=== PATIENT | female | born 1990 | race Caucasian/White ===

== ENCOUNTER → 2020-02-05 08:04 | Outpatient (BNVA) | payer SELFPAY | PROVIDERS: PCP Nurse Practitioner Family; Visit Provider Surgery | DX: Z76.89 Persons encountering health services in other specified circumstances (principal) ==

== ENCOUNTER → 2020-02-07 08:14 | Outpatient (BNVA) | payer SELFPAY | PROVIDERS: PCP Nurse Practitioner Family; Visit Provider Surgery | DX: Z76.89 Persons encountering health services in other specified circumstances (principal) ==

== ENCOUNTER → 2020-02-13 07:58 | Outpatient (BNVA) | payer SELFPAY | PROVIDERS: PCP Nurse Practitioner Family; Referring Provider Nurse Practitioner Family; Visit Provider Surgery | DX: Z76.89 Persons encountering health services in other specified circumstances (principal) ==

== ENCOUNTER → 2020-03-10 08:17 | Outpatient (BNVA) | payer SELFPAY | PROVIDERS: PCP Nurse Practitioner Family; Referring Provider Nurse Practitioner Family; Visit Provider Surgery | DX: Z76.89 Persons encountering health services in other specified circumstances (principal) ==

== ENCOUNTER → 2020-04-17 08:20 | Outpatient (BNVA) | payer OTHER, SELFPAY | PROVIDERS: PCP Nurse Practitioner Family; Visit Provider Surgery ==

== ENCOUNTER → 2020-06-15 11:30 | Outpatient (BNVA) | payer OTHER, SELFPAY | PROVIDERS: PCP Nurse Practitioner Family; Visit Provider Obstetrics & Gynecology | DX: Z64.0 Problems related to unwanted pregnancy (principal) | CPT/HCPCS: 99202 ==

== ENCOUNTER 2020-07-08 11:28 | Outpatient (REF) | payer OTHER, SELFPAY ==
[2020-07-09 09:59] LABS: BV Int Neg Control Negative (Negative); BV Int Pos Control Positive (Positive)
[2020-07-09 10:41] LABS: CT PCR NOT DETECTED (Not Detect.); NG PCR NOT DETECTED (Not Detect.)
== END 2020-07-08 11:29 | disposition home or self-care (01) ==
LOC: HO.LAB 11:28
PROVIDERS: Visit Provider Obstetrics & Gynecology
DX: Z11.3 Encounter for screening for infections with a predominantly sexual mode of transmission (principal); N73.9 Female pelvic inflammatory disease, unspecified
CPT/HCPCS: 87480; 87491; 87510; 87591; 87660; 99212

== ENCOUNTER → 2020-08-20 13:29 | Outpatient (BNVA) | payer OTHER, SELFPAY | PROVIDERS: Visit Provider Advanced Practice Midwife ==

== ENCOUNTER → 2022-06-23 09:35 | Outpatient (BNVA) | payer OTHER, SELFPAY | PROVIDERS: Visit Provider Internal Medicine | DX: Z13.89 Encounter for screening for other disorder (principal) | CPT/HCPCS: 99202 ==

== ENCOUNTER → 2022-06-30 09:35 | Outpatient (BNVA) | payer OTHER, SELFPAY | PROVIDERS: Visit Provider Internal Medicine | DX: Z13.89 Encounter for screening for other disorder (principal) | CPT/HCPCS: 99213 ==

== ENCOUNTER → 2022-07-05 13:18 | Outpatient (BNVA) | payer OTHER, SELFPAY | PROVIDERS: PCP Nurse Practitioner Family; Visit Provider Physician Assistant Medical | DX: Z13.89 Encounter for screening for other disorder (principal) | CPT/HCPCS: 99213 ==

== ENCOUNTER → 2022-07-15 10:26 | Outpatient (BNVA) | payer OTHER, SELFPAY | PROVIDERS: PCP Nurse Practitioner Family; Visit Provider Internal Medicine | DX: Z13.89 Encounter for screening for other disorder (principal) | CPT/HCPCS: 99213 ==

== ENCOUNTER → 2022-07-22 14:17 | Outpatient (BNVA) | payer OTHER, SELFPAY | PROVIDERS: PCP Nurse Practitioner Family; Visit Provider Internal Medicine | DX: Z13.89 Encounter for screening for other disorder (principal) | CPT/HCPCS: 99213 ==

== ENCOUNTER → 2022-08-01 11:49 | Outpatient (BNVA) | payer OTHER, SELFPAY | PROVIDERS: PCP Nurse Practitioner Family; Visit Provider Internal Medicine | DX: Z13.89 Encounter for screening for other disorder (principal) | CPT/HCPCS: 99213 ==

== ENCOUNTER → 2022-08-09 09:35 | Outpatient (BNVA) | payer OTHER, SELFPAY | PROVIDERS: PCP Nurse Practitioner Family; Visit Provider Internal Medicine | DX: Z13.89 Encounter for screening for other disorder (principal) | CPT/HCPCS: 99213 ==

== ENCOUNTER → 2022-09-08 09:25 | Outpatient (BNVA) | payer OTHER, SELFPAY | PROVIDERS: PCP Nurse Practitioner Family; Visit Provider Internal Medicine | DX: Z13.89 Encounter for screening for other disorder (principal) | CPT/HCPCS: 99214 ==

== ENCOUNTER 2025-01-17 08:18 | Outpatient (AMB) | payer OTHER, SELFPAY ==
--- NOTE | 2025-01-17 10:21 | A.OFFVIS_ITS ---
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 Allergies No Known Allergies (No Known Allergies*) Allergy (Verified 01/17/25 10:22) Medication List - Last Reconciled 01/17/25 by Irvin Samaniego MD acetaminophen 500 mg PO Q6H PRN albuterol sulfate 90 mcg/actuation (Ventolin HFA) 2 puffs inhalation Q6H PRN fluticasone furoate-vilanterol 100-25 mcg/dose (Breo Ellipta) 1 ea inhalation DAILY ibuprofen 800 mg PO Q8H sumatriptan succinate mg PO HPI HPI [employer] REPRESENTATIVE SWL/MWL BMI 44.4: Details: Start time: 10.09am, End time: 11.09am ?I spent 55 minutes speaking with the patient on the phone plus an additional 5 minutes reviewing and updating records for a total of 60 minutes HPI Comments Details: Previous weight loss efforts: [facility] program (5 yrs ago: 6.4% TBWL), Ozempic for 1 month (25lbs) Wakes up: 6am, Sleeps: 2am, naps for 2 hours 3/wk Breakfast: 7am (string cheese) Lunch: 12pm (when has no breakfast: sandwich with chips) Dinner: 5pm (pasta with steak, chicken, panini) Snacks: snacks 2-3 (oranges, yogurt, salami with crackers), 7pm (possibly candy bar and another yogurt, chips, string cheese) Exercise: none Beverages: Coffee: 3/wk (1 cup/d with sugar and creamer or caramel), Tea: none, Soda: Pepsi, Sprite or Mountain Dew (daily), Juice: Consuelo light, ETOH: none PFSH Medical History (Updated 08/20/20 @ 16:57 by Ne Casanova CNM) Depression Migraines Knee pain Back pain Surgical History (Updated 12/31/24 @ 09:30 by Yenifer Rangel CMA) No history of previous surgery Morbid obesity Family History Father DM (diabetes mellitus) Mother No problems noted. Sister No problems noted. Brother No problems noted. Sister No problems noted. Son No problems noted. Daughter No problems noted. Social History Alcohol intake: never Gender identity: Female Telehealth Telehealth Telehealth Platform: Telephone Location of provider rendering services: practice address Location of patient: address on file Patient Identification confirmed using: Name, : Yes Telehealth method: voice only Patient verbally consented to treatment: Yes Patient verbally consented to billing insurance company: Yes Patient informed of any privacy concerns related to visit: Yes Minutes spent on Phone/Video with Pt.: 60 Assessment & Plan Assessment & Plan (1) Morbid obesity: Code(s): E66.01 - Morbid (severe) obesity due to excess calories Category: Surgical Plan: 1.? Plan for lap sleeve gastrectomy. If diaphragmatic or ventral hernias are present at time of surgery, these will be repaired laparoscopically as well. I emphasized the importance of close follow-up, adherence to instructions and good communication. The surgery does not replace the need to change your lifestlyle which is the cause of the obesity problem. The surgery provides the motivation to try again to change your lifestyle, it reduces the appetite and make the transition to a better lifestyle easier and doubles the amount of weight you would lose compared to doing the lifestyle change without the surgery. You will need to be on a liquid diet with protein shakes for 2 weeks before surgery to maximize weight loss and boost your nutritional status to recover better from surgery and also for the first two weeks after surgery to let the stomach heal before we introduce other foods. After the first 2 weeks we will introduce protein bars and soft foods like scrambled eggs, cottage cheese and yogurt and after the 6th week will introduce meat, fish and cooked vegetables in small amounts. Over time you should be able to eat everything in small amounts. Side effects like nausea, vomiting, heartburn or abdominal pain are not common in the practice unless you are not following in the practice. This operation requires lifetime commitment to following in our practice and communication with me. You will much less weight and experience side effects if you don?t communicate or not following in the practice. Complications are rare and in our practice is about 1/10 of the national average. However, you can develop bleeding that may require transfusion (hasn?t happened for year in the practice), you may from complications (we did not have any deaths in the practice) and infections. Infections are usually a result of breakdown in communication or not understanding or following directions correctly. They are difficult to treat, they can happen during the first 6 weeks, they may require to be in the hospital for weeks or even months, not being able to eat by mouth and you may have drains and surgeries to try and correct the issue. Other risks and complications include possible conversion to an open procedure, leaks, small bowel obstruction, blood clots, cardiac, or pulmonary complications, as prison complications such as ulcers, insufficient weight loss and vitamin deficiencies. 2.??? Nutritional counseling. Start with one CELEBRATE REBUILD protein (buy online) shake (HALF scoop EACH in 8oz low fat unsweetened almond milk each) at 7am-9am, one protein bar ([employer] protein bars, buy online) at 10am-12pm, another CELEBRATE REBUILD protein shake (HALF scoop EACH in 8oz low fat unsweetened almond milk each) at 1pm-3pm, Celebrate protein bar at 4pm-6pm, dinner at 7pm (8 forks of protein and 8 forks of salad/vegetables) AND another CELEBRATE REBUILD protein shake (HALF scoop EACH in 8oz low fat unsweetened almond milk each) at 9pm-11pm. If hungry you can have another HALF bar at midnight to 1am. So you do 3 protein shakes, 2 to 2.5 protein bars and one meal per day. Meal to include lean meat (beef, fish, pork, turkey, chicken), or korean yogurt, or egg whites, or beans with a salad with olive oil and fruits (berries, pears, apples, kiwi). Avoid salt, breads, potatoes, rice, pasta, desserts. 3. Each shake would be drunk slowly, like coffee in a period of 2 hours. 4. Cut each bar in 4 pieces and eat each piece in 30min ?to make each bar last 2 hours. 5. I emphasized the importance of measuring accurately the food portion and measure it when serving the food in plate 6. The meal portions include 8 full-size forks of meat and 8 full-size forks of salad. You always eat the meat portion but you can replace up to 4 forks for salad/vegetables with rice, potatoes or pasta, or a fruit ?if you like. The less you do it the better weight loss will be. 7. One full-size fork is what it can be scooped on the fork without falling aside and not what can be bit with the fork. Use regular forks like those you find in a typical restaurant. 8.? Please buy the body composition scale we discussed and send me weight measurements as soon as possible and then once a week. Always include your diet and exercise plan. 9. Start walking outside daily, tracking calories with a goal of 300 calories per day, daily. Goal is to burn 2000 calories per week on exercise, which means either 300 calories daily, or 400 calories 5 days per week, or 500 calories 4 days per week, or 650 calories 3 days per week. 10. The best choice would be to purchase a stationary bike, elliptical or treadmill at home that can track calories. Let me know if you do so I can give you an exercise plan 11.?It is important of avoiding and for at least 18 months postoperatively and has been discussed at the infosession. 12. Goal is to lose at least 1.5-2lbs per week 13. Goal to lose 10% of your weight before surgery, which is about 25lbs. Ultimate weight goal: 225lbs before surgery 14. Please follow the diet plan exactly without any change. If you don't like something about the plan or you feel hungry you need to communicate with me so I can help you revise the plan. You should not change the plan yourself 15. To be scheduled for EGD to assess the stomach's anatomy. The possibility of biopsies was discussed. Patient needs to avoid use of NSAIDs and aspirin for 1 week prior to EGD. You must be on liquids only the day before your endoscopy. Risks of perforation and bleeding was discussed with the patient. This will be an outpatient procedure with IV sedation. 16. As of tomorrow, please send me a picture of your meal plate after you measure it, but before you consume it. Orders: Orders IRON PROFILE Today E66.01 - Morbid (severe) obesity due to excess calories Comprehensive Met. Panel Today E66.01 - Morbid (severe) obesity due to excess calories Vitamin B12 and Folate Today E66.01 - Morbid (severe) obesity due to excess calories Vitamin B1 Today E66.01 - Morbid (severe) obesity due to excess calories TSH reflex Free T4 Today E66.01 - Morbid (severe) obesity due to excess calories Ferritin Today E66.01 - Morbid (severe) obesity due to excess calories XR chest 2V Today E66.01 - Morbid (severe) obesity due to excess calories ECG 12 lead EKG Today E66.01 - Morbid (severe) obesity due to excess calories Insulin Today E66.01 - Morbid (severe) obesity due to excess calories Hemoglobin A1c Today E66.01 - Morbid (severe) obesity due to excess calories H Pylori Breath Test Today E66.01 - Morbid (severe) obesity due to excess calories Complete Blood Count Auto Diff Today E66.01 - Morbid (severe) obesity due to excess calories Lipid Panel Today E66.01 - Morbid (severe) obesity due to excess calories Zinc Today E66.01 - Morbid (severe) obesity due to excess calories C Reactive Protein Today E66.01 - Morbid (severe) obesity due to excess calori es Vitamin A Today E66.01 - Morbid (severe) obesity due to excess calories Vitamin D 25-OH Total Today E66.01 - Morbid (severe) obesity due to excess calories US abdomen comp w elastography Today E66.01 - Morbid (severe) obesity due to excess calories FL upper GI w air Today E66.01 - Morbid (severe) obesity due to excess calories Referrals Behavioral Health Referral E66.01 - Morbid (severe) obesity due to excess calories Nutrition/Dietitian Referral E66.01 - Morbid (severe) obesity due to excess calories
[2025-01-17 10:46] VITALS: BMI 44.4
== END 2025-01-17 11:10 | disposition home or self-care (01) ==
LOC: HO.HBS 08:18
PROVIDERS: PCP Nurse Practitioner Family; Visit Provider Surgery
DX: E66.01 Morbid (severe) obesity due to excess calories (principal); E66.813 Obesity, class 3; Z68.41 Body mass index [BMI] 40.0-44.9, adult
CPT/HCPCS: 99205